=== PATIENT | female | born 1995 | race Caucasian/White ===

== ENCOUNTER 2022-01-12 21:42 | Emergency (ER) | payer OTHER ==
[2022-01-12 22:01] VITALS: BP 112/67
--- NOTE | 2022-01-12 22:26 | XRAY Report ---
PROCEDURE: Foot 3 View LT INDICATIONS: pain/tenderness w/ L FOOT/4-5TH DIGIT TECHNIQUE: 3 views of the foot were acquired. COMPARISON: None FINDINGS: Bones: Mildly displaced fracture of the midportion of the proximal phalanx of the fifth digit.. No s uspicious bony lesions. Soft tissues: No tibiotalar joint effusion. Achilles tendon appears normal. IMPRESSION: Fifth digit fracture. Reviewed by: Sai Mack MD on 01/12/2022 10:24 PM [facility] Approved by: Sai Mack MD on 01/12/2022 10:24 PM [facility] Station ID: [id number]
--- NOTE | 2022-01-13 02:02 | ED Physician Documentation ---
PD HPI LOWER EXT INJURY - Stated complaint Stated Complaint: LT FOOT INJ - Chief complaint Chief Complaint: Ext Problem - History obtained from History obtained from: Patient - History of Present Illness PD HPI LOW EXT INJURY LOCATION: Left, Toe Type of injury: Blunt / blow Where injury occurred: Home Timing - onset: Today (tonight) Timing - details: Abrupt onset Pain level now: 5 Improved by: Rest Worsened by: Moving, Palpating Associated symptoms: Swelling - Additional information Additional information: tonight while walking in her house, accidentally struck left foot on corner of wall , with the corner catching between her fourth and fifth toes. c/o sudden onset left fifth toe pain that is gradually increasing in severity. 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 : None HEENT: None Psych: None Musculoskeletal: None Derm: None - Past Surgical History Past Surgical History: Yes HEENT: Tonsil/Adenoidectomy - Present Medications Home Medications: Ambulatory Orders Medication Instructions Recorded Confirmed HYDROcod/ACETAM 5/325 [[place] 5/325] 1 - 2 tablet PO Q6H PRN #14 tablet 01/13/22 - Allergies Allergies/Adverse Reactions: Allergies Allergy/AdvReac Type Severity Reaction Status Date / Time No Known Drug Allergies Allergy Verified 01/12/22 22:00 - Social History Does the pt smoke?: No Smoking Status: Never smoker Does the pt drink ETOH?: No Does the pt have substance abuse?: No - Immunizations Immunizations are current?: Yes - POLST Patient has POLST: No PD ED PE NORMAL - Vitals Vital signs reviewed: Yes - General General: Alert and oriented X 3, No acute distress, Well developed/nourished PD ED PE EXPANDED - Extremities Extremities: Other (left fifth toe: echymosis and tenderness along proximal ph alanx. there is mild deformity: toe is mildly abducted (deviated) at rest) Feet visual: 1 - bruising, swelling, deformity, tenderness Results - Vitals Vitals: Oxygen O2 Source Room air - Rads (name of study) left foot xrays Radiology: Prelim report reviewed, See rad report PD MEDICAL DECISION MAKING - ED course Complexity details: considered differential, d/w patient ED course: xrays reveal fracture of left fifth toe, proximal phalanx. The 4th and 5th toes are eddi taped and a post-operative shoe is placed. She is fitted for/provided with crutches. Given vicodin with rx for same (transmitted to [facility] pharmacy). Advised to follow up with orthopedic surgeon, minimize weight-bearing with c rutches. Departure - Departure Disposition: 01 Home, Self Care Clinical Impression: Toe fracture, left Qualifiers: Encounter type: initial encounter Toe: lesser toe Fracture type: closed Phalanx: proximal Fracture alignment: displaced Qualified Code(s): S92.512A - Displaced fracture of proximal phalanx of left lesser toe(s), initial encounter for closed fracture Condition: Good Instructions: ED Crutch Walking, ED Fx Toe Closed Follow-Up: Freddy Zurita MD [Provider Admit Priv/Credential] - SWATHI ROBERSON PA-C [Primary Care Provider] - Prescriptions: HYDROcod/ACETAM 5/325 [[place] 5/325] 1 - 2 tablet PO Q6H PRN #14 tablet PRN Reason: Pain Comments: You have a broken toe; the break is at the base of your fifth toe. Follow up with your primary care provider within 5 days. A prescription for hydrocodone with acetaminophen has been electronically submitted to the [facility] pharmacy in [place]. You can try ibuprofen for mild/moderate pain, use the hydrocodone/acetaminophen for severe pain or pain that is not controlled with ibuprofen alone. Minimize weight-bearing using the crutches provided. I am prescribing a short course of narcotic pain medication for you. These are potentially dangerous and addictive medications that should be used carefully. These medications may constipate you. Take an obzc-zuw-ydxolto stool softener (docusate) twice daily with plenty of water while taking these medications. If y ou go 24 hours without a bowel movement, take bmzd-[id number] miralax, per package instructions. Do not drink or drive while taking these medications. If you received narcotic or sedating medications while in the emergency department, do not drive for 24 hours. Store this medication in a safe, secure place and out of reach of children. It is a violation of federal law to give or sell this medication to another person or to use in a manner other than prescribed. The ED will not refill narcotic prescriptions, including prescriptions lost or stolen. To dispose of unwanted medications: 1. [facility] at [address] in [place] has a medication drop box. They accept prescription medications (in pill form) Tuesday through Tuesday 9:00 a.m. to 5:00 p.m. 2. The [facility] [employer] accepts prescription medications (in pill form only) for disposal year round. Call for more information. 3. Contact the [facility] for the next [facility] sponsored prescription drug collection event. , [phone], or [phone]; Discharge Date/Time: 01/13/22 02:43
[2022-01-13] MEDS ORDERED: HYDROcod/ACETAM 5/325 MG TABLET PO STA (02:15)
== END 2022-01-13 02:43 | disposition home or self-care (01) ==
LOC: ED 21:42
DX: S92.512A Displaced fracture of proximal phalanx of left lesser toe(s), initial encounter for closed fracture (principal); W22.8XXA Striking against or struck by other objects, initial encounter; Y93.01 Activity, walking, marching and hiking; Y92.009 Unspecified place in unspecified non-institutional (private) residence as the place of occurrence of the external cause
CPT/HCPCS: 73630; 99283; A9270

== ENCOUNTER 2023-10-16 13:44 | Emergency (ER) | payer OTHER ==
[2023-10-16 13:54] VITALS: BP 120/74; O2SAT 98
[2023-10-16 15:11] LABS: B. PARAPERTUSSIS- RESP PCR PAN NOT DETECTED; B. PERTUSSIS- RESP PCR PANEL NOT DETECTED; C. PNEUMONIAE- RESP PCR PANEL NOT DETECTED; CORONAVIRUS 229E-RESP PCR NOT DETECTED; CORONAVIRUS HKU1-RESP PCR NOT DETECTED; CORONAVIRUS NL63-RESP PCR NOT DETECTED; CORONAVIRUS OC43-RESP PCR NOT DETECTED; HUMAN METAPNEUMOVIRUS NOT DETECTED; INFLUENZA A- RESP PCR PANEL NOT DETECTED; INFLUENZA B - RESP PCR PANEL NOT DETECTED; M. PNEUMONIAE- RESP PCR PANEL NOT DETECTED; PARAINFLUENZA VIRUS 1 NOT DETECTED; PARAINFLUENZA VIRUS 2 NOT DETECTED; PARAINFLUENZA VIRUS 3 NOT DETECTED; PARAINFLUENZA VIRUS 4 NOT DETECTED; RHINOVIRUS/ENTEROVIRUS NOT DETECTED; RSV- RESP PCR PANEL DETECTED; SARS-CoV-2 -RESP PCR PANEL NOT DETECTED
--- NOTE | 2023-10-16 15:44 | ED Physician Documentation ---
PD HPI URI - Stated complaint Stated Complaint: SOA,COUGH - Chief complaint Chief Complaint: Resp - History obtained from History obtained from: Patient - History of Present Illness Timing duration: Weeks (2) Timing details: Gradual onset Associated symptoms: Nasal congestion, Rhinorrhea. No: Fever, Chills, Dry cough, Productive cough, Dyspnea, NVD - Additional information Additional information: Patient is a 28-year-old female, approximately 22 weeks who has had a cough for the past 2 weeks. No fevers. No chills. Her OB is in [place]. The cough is mostly dry. No wheezing. No stridor. No vaginal bleeding or discharge. Has a 5-year-old child at home as well. Review of Systems Constitutional: denies: Fever, Chills Nose: reports: Rhinorrhea / runny nose, Congestion Cardiac: denies: Chest pain / pressure, Palpitations Respiratory: reports: Cough. 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 : None HEENT: None Psych: None Musculoskeletal: None Derm: None - Past Surgical History Past Surgical History: Yes HEENT: Tonsil/Adenoidectomy - Present Medications Home Medications: Ambulatory Orders Medication Instructions Recorded Confirmed Pnv No.95/Ferrous Fum/Folic AC 1 each PO DAILY 10/16/23 10/16/23 [ [place]] guaiFENesin [Guaifenesin ER] 600 mg PO BID PRN #30 ea 10/16/23 - Allergies Allergies/Adverse Reactions: Allergies Allergy/AdvReac Type Severity Reaction Status Date / Time No Known Drug Allergies Allergy Verified 10/16/23 13:52 - Social History Does the pt smoke?: No Smoking Status: Never smoker Does the pt drink ETOH?: No Does the pt have substance abuse?: No - Immunizations Immunizations are current?: Yes - POLST Patient has POLST: No PD ED PE NORMAL - Vitals Vital signs reviewed: Yes - General General: Alert and oriented X 3, No acute distress - HEENT HEENT: Ears normal, Moist mucous membranes, Pharynx benign - Neck Neck: Supple, no meningeal sign - Cardiac Cardiac: RRR, Strong equal pulses - Respiratory Respiratory: No respiratory distress, Clear bilaterally - Abdomen Abdomen: Soft, Non tender, Other (gravid) - Derm Derm: Warm and dry - Extremities Extremities: No deformity - Neuro Neuro: Alert and oriented X 3 - Psych Psych: Normal mood, Normal affect Results - Vitals Vitals: Vital Signs - 24 hr 10/16/23 13:47 Temperature 36.4 C L Heart Rate 92 Respiratory 16 Rate Blood Pressure 120/74 O2 Saturation 98 Oxygen O2 Source Room air - Labs Labs: Laboratory Tests 10/16/23 13:55 Nasal Adenovirus (PCR) NOT DETECTED Nasal B. parapertussis DNA (PCR) NOT DETECTED Nasal Coronavir 229E PCR NOT DETECTED Nasal Coronavir HKU1 PCR NOT DETECTED Nasal Coronavir NL63 PCR NOT DETECTED Nasal Coronavir OC43 PCR NOT DETECTED Nasal Enterovir/Rhinovir PCR NOT DETECTED Nasal Influenza B PCR NOT DETECTED Nasal Influenza A PCR NOT DETECTED Nasal Parainfluen 1 PCR NOT DETECTED Nasal Parainfluen 2 PCR NOT DETECTED Nasal Parainfluen 3 PCR NOT DETECTED Nasal Parainfluen 4 PCR NOT DETECTED Nasal RSV (PCR) DETECTED A Nasal B.pertussis DNA PCR NOT DETECTED Nasal C.pneumoniae (PCR) NOT DETECTED Kishore Human Metapneumo PCR NOT DETECTED Nasal M.pneumoniae (PCR) NOT DETECTED Nasal SARS-CoV-2 (PCR) NOT DETECTED PD Medical Decision Making - ED course Complexity details: reviewed results, re-evaluated patient, considered differential, d/w patient ED course: 28-year-old female, positive for RSV. She is very well-appearing, nontoxic. Afebrile. No indication for antibiotics. She is approximately 22 weeks . No hypoxia or respiratory distress. She is requesting cough medication for home, this was prescribed. She will follow-up with her OB for further care. Patient counseled regarding signs and symptoms for which I believe and urgent re-evaluation would be necessary. Patient with good understanding of and agreement to plan and is comfortable going home at this time This document was made in part using voice recognition software. While efforts are made to proofread this document, sound alike and grammatical errors may occur. Departure - Departure Disposition: 01 Home, Self Care Clinical Impression: RSV infection Condition: Good Instructions: ED Viral Syndrome Follow-Up: SWATHI ROBERSON PA-C [Primary Care Provider] - Prescriptions: guaiFENesin [Guaifenesin ER] 600 mg PO BID PRN #30 ea PRN Reason: cough Comments: You have tested positive for RSV today. Please follow-up with your OB for further care as needed. Your prescriptions were sent to [facility] in [place]. Please make sure you are drinking plenty of fluids at home. Please return if you worsen Forms: PCP List Discharge Date/Time: 10/16/23 15:53
== END 2023-10-16 15:53 | disposition home or self-care (01) ==
LOC: ED 13:44
DX: O99.892 Other specified diseases and conditions complicating childbirth (principal); B97.4 Respiratory syncytial virus as the cause of diseases classified elsewhere; Z3A.22 22 weeks gestation of pregnancy; Z20.822 Contact with and (suspected) exposure to COVID-19
CPT/HCPCS: 87633; 99283